=== PATIENT | male | born 2000 | race Caucasian/White ===

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

== ENCOUNTER 2019-01-13 12:04 | Emergency (ER) | payer OTHER ==
[2019-01-13 12:57] VITALS: BP 114/59
--- NOTE | 2019-01-13 15:01 | ER Document Report ---
ED Medical Screen (RME) - General Chief Complaint: Medical Clearance Stated Complaint: DETOX Time Seen by Provider: 01/13/19 13:43 Primary Care Provider: JUAN CUNNINGHAM DO [Primary Care Provider] - Follow up as needed Mode of Arrival: Ambulatory Information source: Patient Notes: Patient presents to the emergency department for medical clearance psych eval for rehab. Patient reports he has a problem with benzos. Also reports he has been in and out of [facility] his whole life but denies mental health issues. Reports he has depression. He reports he was told to come here for all the paperwork. Patient is calm alert no distress I have greeted and performed a rapid initial assessment of this patient. A comprehensive ED assessment and evaluation of the patient, analysis of test results and completion of the medical decision making process will be conducted by additional ED providers. Dictation of this chart was performed using voice recognition software; therefore, there may be some unintended grammatical errors. TRAVEL OUTSIDE OF THE [place] IN LAST 30 DAYS: No - Related Data Allergies/Adverse Reactions: amoxicillin [Amoxicillin] Allergy (Verified 04/11/17 14:22) ibuprofen [Ibuprofen] Allergy (Verified 04/11/17 14:22) Past Medical History - Social History Frequency of alcohol use: Rare Drug Abuse: None - Past Medical History Cardiac Medical History: Reports: Hx Congestive Heart Failure Renal/ Medical History: Denies: Hx Peritoneal Dialysis Psychiatric Medical History: Reports: Hx Depression Past Surgical History: Reports: Hx Orthopedic Surgery - L hand - Immunizations Immunizations up to date: Yes Hx Diphtheria, Pertussis, Tetanus Vaccination: Yes Physical Exam - Vital signs Vitals: Temp Pulse Resp BP Pulse Ox 97.9 F 56 L 16 114/59 L 98 01/13/19 12:56 01/13/19 12:56 01/13/19 12:56 01/13/19 12:56 01/13/19 12:56 Course - Vital Signs Vital signs: Temp Pulse Resp BP Pulse Ox 97.9 F 56 L 16 114/59 L 98 01/13/19 12:56 01/13/19 12:56 01/13/19 12:56 01/13/19 12:56 01/13/19 12:56 Doctor's Discharge - Discharge Referrals: JUAN CUNNINGHAM DO [Primary Care Provider] - Follow up as needed
[2019-01-13 15:34] LABS: ABSOLUTE BASOPHILS # (AUTO) 0.1 10^3/uL (0.0-0.2); ABSOLUTE EOSINOPHILS # (AUTO) 0.5 10^3/uL (0.0-0.6); ABSOLUTE LYMPHOCYTES (AUTO) 2.4 10^3/uL (0.5-4.7); ABSOLUTE MONOCYTES (AUTO) 0.7 10^3/uL (0.1-1.4); ABSOLUTE NEUT (AUTO) 3.3 10^3/uL (1.7-8.2); BASOPHILS % (AUTO) 1.4 % (0-2); EOSINOPHILS % (AUTO) 6.6 % (0-6); HEMATOCRIT 45.1 % (37.9-51.0); HEMOGLOBIN 15.1 g/dL (13.5-17.0); LYMPHOCYTES % (AUTO) 34.7 % (13-45); MEAN CORPUSCULAR HGB CONC 33.5 g/dL (32.0-36.0); MEAN CORPUSCULAR VOLUME 90 fl (80-97); MONOCYTES % (AUTO) 10.2 % (3-13); PLATELET COUNT 200 10^3/uL (150-450); RED BLOOD COUNT 5.03 10^6/uL (4.35-5.55); RED CELL DISTRIBUTION WIDTH 14.1 % (11.5-14.0); SEGMENTED NEUTROPHILS % (AUTO) 47.1 % (42-78); TOTAL CELLS COUNTED % (AUTO) 100 %; WHITE BLOOD COUNT 6.9 10^3/uL (4.0-10.5)
[2019-01-13 15:44] LABS: AMORPHOUS SEDIMENT,URINE TRACE /HPF; APPEARANCE,URINE CLOUDY; BILIRUBIN,URINE NEGATIVE (NEGATIVE); COLOR,URINE YELLOW; GLUCOSE, URINE NEGATIVE (NEGATIVE); KETONES,URINE NEGATIVE (NEGATIVE); LEUKOCYTE ESTERASE,URINE NEGATIVE (NEGATIVE); NITRITE,URINE NEGATIVE (NEGATIVE); PROTEIN,URINE NEGATIVE (NEGATIVE); URINE SPECIFIC GRAVITY 1.024; UROBILINOGEN,URINE NEGATIVE mg/dL (<2.0)
[2019-01-13 15:49] LABS: ALANINE AMINOTRANSFERASE 20 U/L (21-72); ALKALINE PHOSPHATASE 102 U/L (38-126); ANION GAP 9 (5-19); ASPARTATE AMINO TRANSFERASE 23 U/L (17-59); BILIRUBIN,DIRECT 0.2 mg/dL (0.0-0.4); BILIRUBIN,TOTAL 0.7 mg/dL (0.2-1.3); BLOOD UREA NITROGEN 12 mg/dL (7-20); CARBON DIOXIDE 28 mmol/L (22-30); CHLORIDE 104 mmol/L (98-107); GLUCOSE 94 mg/dL (75-110); POTASSIUM 5.1 mmol/L (3.6-5.0); SODIUM 140.5 mmol/L (137-145)
[2019-01-13 15:51] LABS: ACETAMINOPHEN < 10 ug/mL (10-30); ALCOHOL < 10 mg/dL (NONE DETECTED); SALICYLATE < 1.0 mg/dL (2.0-20.0)
[2019-01-13 15:58] LABS: URINE AMPHETAMINES SCREEN NEGATIVE; URINE BARBITURATES SCREEN NEGATIVE; URINE BENZODIAZEPINES SCREEN NEGATIVE; URINE COCAINE SCREEN NEGATIVE; URINE MARIJUANA (THC) SCREEN NEGATIVE; URINE METHADONE SCREEN NEGATIVE; URINE PHENCYCLIDINE SCREEN NEGATIVE
--- NOTE | 2019-01-13 17:34 | ER Document Report ---
ED Psych Disorder / Suicide - General Chief Complaint: Medical Clearance Stated Complaint: DETOX Time Seen by Provider: 01/13/19 13:43 Primary Care Provider: JUAN CUNNINGHAM DO [Primary Care Provider] - Follow up as needed Mode of Arrival: Ambulatory Notes: Patient is here because he is trying to get into alcohol detox and they require him to have a medical clearance as well as a psychiatric clearance. Patient says he has a problem abusing alcohol, but has not had any for well over a week or more. Occasionally he is taken some benzos. He is spent some time at [facility] in the past over "anger issues". Patient has also been convicted and quarter breaking and entering in violation of parole and has spent time in penitentiary as well as at present. Says he has been clean now for at least a week or 10 days and wants to get into detox so he does not end up back in penitentiary. Patient has no specific complaints or medical problems. TRAVEL OUTSIDE OF THE [place] IN LAST 30 DAYS: No - Related Data Allergies/Adverse Reactions: amoxicillin [Amoxicillin] Allergy (Verified 04/11/17 14:22) ibuprofen [Ibuprofen] Allergy (Verified 04/11/17 14:22) Past Medical History - General Information source: Patient - Social History Smoking Status: Current Every Day Smoker Frequency of alcohol use: Rare Drug Abuse: None Family History: Reviewed & Not Pertinent Patient has suicidal ideation: No Patient has homicidal ideation: No Psychiatric Medical History: Reports: Hx Depression Past Surgical History: Reports: Hx Orthopedic Surgery - L hand - Immunizations Immunizations up to date: Yes Hx Diphtheria, Pertussis, Tetanus Vaccination: Yes Review of Systems - Review of Systems Notes: REVIEW OF SYSTEMS: CONSTITUTIONAL : Denies fever. EENT: Denies eye, ear, nose or mouth or throat pain or other symptoms. CARDIOVASCULAR: Denies chest pain. RESPIRATORY: Denies cough, chest congestion, or shortness of breath. GASTROINTESTINAL: Denies abdominal pain or nausea, vomiting, or diarrhea. GENITOURINARY: Denies difficulty or painful urinating, urinary frequency, blood in urine. MUSCULOSKELETAL: Denies back or neck pain. Denies joint pain or swelling. Says he is been told he has a cyst on the dorsal knuckle between the distal metacarpal and the proximal phalanx of that middle finger joint. SKIN: Denies rash or skin lesions. NEUROLOGICAL: Denies LOC or altered mental status. Denies headache. Denies sensory loss or motor deficits. ALL OTHER SYSTEMS REVIEWED AND NEGATIVE. Physical Exam - Vital signs Vitals: Temp Pulse Resp BP Pulse Ox 97.9 F 56 L 16 114/59 L 98 01/13/19 12:56 01/13/19 12:56 01/13/19 12:56 01/13/19 12:56 01/13/19 12:56 Interpretation: Normal Notes: PHYSICAL EXAMINATION: GENERAL: Well-appearing, in no acute distress. Vital signs are all normal. Patient is calm and pleasant. HEAD: Atraumatic, normocephalic. EYES: Pupils equal round and reactive to light, extraocular movements intact. ENT: oropharynx clear without exudates. Moist mucous membranes. NECK: Normal range of motion, supple. LUNGS: Breath sounds clear and equal bilaterally. HEART: Regular rate and rhythm without murmurs. ABDOMEN: Soft, nontender. No guarding or rebound. No masses. BACK: No tenderness throughout entire back. EXTREMITIES: Normal range of motion without pain. I do not see any evidence of a cyst mentioned previously on the dorsum of the hand at the knuckle between the metacarpal and the proximal phalanx of the middle finger. Full range of motion without any limitations. NEUROLOGICAL: Normal speech, normal gait. Normal sensory, motor, and reflex exams. Awake, alert, and oriented x3. Cranial nerves normal. PSYCH: Normal mood, normal affect. SKIN: Warm, dry, no rashes. Course - Re-evaluation Re-evalutation: 01/13/19 17:36 All of the patient's labs are essentially normal. - Vital Signs Vital signs: Temp Pulse Resp BP Pulse Ox 97.9 F 56 L 16 114/59 L 98 01/13/19 12:56 01/13/19 12:56 01/13/19 12:56 01/13/19 12:56 01/13/19 12:56 - Laboratory Result Diagrams: 01/13/19 15:16 01/13/19 15:16 Laboratory results interpreted by me: 01/13/19 01/13/19 15:16 15:16 RDW 14.1 H Eosinophils % 6.6 H Potassium 5.1 H ALT 20 L Salicylates < 1.0 L Acetaminophen < 10 L Discharge - Discharge Clinical Impression: Medical clearance, Normal exam Condition: Stable Disposition: HOME, SELF-CARE Additional Instructions: NORMAL EXAM AND WORKUP: At this time, your examination and workup show no significant medical abnormality. No significant abnormal physical findings were noted. All laboratory, EKG, and imaging (x-ray, CT scans, ultrasound) studies that were ordered show no significant abnormality. Although your examination and all studies that were ordered showed no significant abnormal finding, there are no examinations and no studies that are 100% accurate. There is always the possibility that some abnormality could exist and not be detected with physical examination or within the limits and capabilities of laboratory and other studies. You should return or follow up as you were instructed on your visit today for further evaluation if your symptoms do not resolve. FOLLOW-UP CARE: If you have been referred to a physician for follow-up care, call the physicians office for an appointment as you were instructed or within the next two days. If you experience worsening or a significant change in your symptoms, notify the physician immediately or return to the Emergency Department at any time for re-evaluation.
--- NOTE | 2019-01-14 19:07 | EKG REPORT ---
SEVERITY:- NORMAL ECG - SINUS RHYTHM : Confirmed by: Devin Olsen MD 14-Jan-2019 19:07:07
== END 2019-01-13 17:45 | disposition home or self-care (01) ==
LOC: ER 12:04
DX: Z71.1 Person with feared health complaint in whom no diagnosis is made (principal); F10.10 Alcohol abuse, uncomplicated; F17.200 Nicotine dependence, unspecified, uncomplicated
CPT/HCPCS: 36415; 80053; 80307; 81001; 85025; 93005; 93010; 99283

== ENCOUNTER 2019-01-14 11:53 | Emergency (ER) | payer OTHER ==
[2019-01-14 12:07] VITALS: BP 113/64
--- NOTE | 2019-01-14 12:48 | ER Document Report ---
Addendum entered and electronically signed by PRINCESS MILLAN LPC 01/14/19 13:25: Discharge - Discharge Clinical Impression: History of substance use, Normal psychiatric assessment Condition: Stable Disposition: HOME, SELF-CARE Additional Instructions: You have been evaluated by both medical and psychiatric providers while in the emergency department. You have been cleared from both acute medical and psychiatric services. This visit was for general psychiatric consultation for clearance to [facility], [facility] term recovery program. You denied suicidal and homicidal ideation (SI/HI), made no comments or gestures regarding SI/HI, and no observed psychosis as evidenced by fair eye contact/staying on topic/answering questions appropriately when addressed/being engaged in evaluation. Mental Status Exam is unremarkable with euthymic mood and congruent affect, linear and organized thought processes, conversational speech within normal limits for rate/tone/prosody, intellectual abilities estimated to be average, attention and concentration were good and insight/judgment/impulse control fair as evidenced by completing requirements for [facility], a [employer] recovery program. You denied drug and alcohol use, stated you have been sober 11 4 days today and Urine Drug Screen yesterday (01/13/19) was negative for all substances tested for. You have been seen in the [facility] Emergency Department in the past for psychiatric/behavioral health reasons (04/11/17, 02/16/17) under Involuntary Commitment where polysubstance use and suicidal ideations (then documented as chronic and passive without plan), each time being rescinded and discharged. 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 You denied current outpatient services. You admitted to current Probation (been on for 2 years, it has been extended another 2 years) and trying to get back on track with your life and future. Follow-Up Plan: You stated you would be faxing paperwork to [facility] as you have already been accepted and just need to submit all required paperwork and information. You are recommended to move forward with such [employer] recovery. Referrals: JUAN CUNNINGHAM, [NO LOCAL MD] - Follow up as needed [facility] [Outside] - Follow up as needed Original Note: ED Medical Screen (RME) - General Mode of Arrival: Ambulatory Information source: Patient TRAVEL OUTSIDE OF THE [place] IN LAST 30 DAYS: No - General Chief Complaint: Psych Problem Stated Complaint: MEDICAL CLEARANCE/PSYCH Time Seen by Provider: 01/14/19 12:41 Primary Care Provider: [facility] [Outside] - Follow up as needed JUAN CUNNINGHAM DO [NO LOCAL MD] - Follow up as needed Notes: Patient presents to the emergency department for psych clearance to go to rehab. He was evaluated here yesterday and received medical clearance to go to rehab but chose a send him back here to obtain psych clearance. He reports history of alcohol abuse. He has also used benzos in the past. Reports no drug abuse recently. No other complaints. Princess from [facility] is aware. I have greeted and performed a rapid initial assessment of this patient. A comprehensive ED assessment and evaluation of the patient, analysis of test results and completion of the medical decision making process will be conducted by additional ED providers. Dictation of this chart was performed using voice recognition software; therefore, there may be some unintended grammatical errors. (SEJAL ANGELA) - Related Data Allergies/Adverse Reactions: amoxicillin [Amoxicillin] Allergy (Verified 01/14/19 11:54) ibuprofen [Ibuprofen] Allergy (Verified 01/14/19 11:54) Past Medical History - Past Medical History Cardiac Medical History: Reports: Hx Congestive Heart Failure Renal/ Medical History: Denies: Hx Peritoneal Dialysis Psychiatric Medical History: Reports: Hx Depression Past Surgical History: Reports: Hx Orthopedic Surgery - L hand - Immunizations Immunizations up to date: Yes Hx Diphtheria, Pertussis, Tetanus Vaccination: Yes - Vital signs Vitals: Temp Pulse Resp BP Pulse Ox 97.8 F 65 21 H 113/64 98 01/14/19 12:06 01/14/19 12:06 01/14/19 12:06 01/14/19 12:06 01/14/19 12:06 - Vital Signs Vital signs: Temp Pulse Resp BP Pulse Ox 97.8 F 65 21 H 113/64 98 01/14/19 12:06 01/14/19 12:06 01/14/19 12:06 01/14/19 12:06 01/14/19 12:06 Doctor's Discharge - Discharge Clinical Impression: History of substance use, Normal psychiatric assessment Condition: Stable Disposition: HOME, SELF-CARE Additional Instructions: You have been evaluated by both medical and psychiatric providers while in the emergency department. You have been cleared from both acute medical and psychiatric services. This visit was for general psychiatric consultation for clearance to [facility], along term recovery program. You denied suicidal and homicidal ideation (SI/HI), made no comments or gestures regarding SI/HI, and no observed psychosis as evidenced by fair eye contact/staying on topic/answering questions appropriately when addressed/being engaged in evaluation. Mental Status Exam is unremarkable with euthymic mood and congruent affect, linear and organized thought processes, conversational speech within normal limits for rate/tone/prosody, intellectual abilities estimated to be average, attention and concentration were good and insight/judgment/impulse control fair as evidenced by completing requirements for [facility], a group home recovery program. You denied drug and alcohol use, stated you have been sober 114 days today and Urine Drug Screen yesterday (01/13/19) was negative for all substances tested for. You have been seen in the [facility] Emergency Department in the past for psychiatric/behavioral health reasons (04/11/17, 02/16/17) under Involuntary Commitment where polysubstance use and suicidal ideations (then documented as chronic and passive without plan), each time being rescinded and discharged. 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 You denied current outpatient services. You admitted to current Probation (been on for 2 years, it has been extended another 2 years) and trying to get back on track with your life and future. Follow-Up Plan: You stated you would be faxing paperwork to [facility] as you have already been accepted and just need to submit all required paperwork and information. You are recommended to move forward with such group home recovery. Referrals: [facility] [Outside] - Follow up as needed JUAN CUNNINGHAM, [NO LOCAL MD] - Follow up as needed
--- NOTE | 2019-01-14 13:26 | PSYCHOLOGICAL NOTE ---
Psych Note - Psych Note Date seen by psych provider: 01/14/19 Time seen by psych provider: 12:13 - Chart review at 1213. Evaluation from 1301- 1307. 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 Patient denied suicidal and homicidal ideation (SI/HI), made no comments or gest ures regarding SI/HI, and no observed psychosis as evidenced by fair eye contact/staying on topic/answering questions appropriately when addressed/being engaged in evaluation. Mental Status Exam is unremarkable with euthymic mood and congruent affect, linear and organized thought processes, conversational speech within normal limits for rate/tone/prosody, intellectual abilities estimated to be average, attention and concentration were good and insight/judgment/impulse control fair as evidenced by completing requirements for [facility], a long term care phlebotomist recovery program. He denied drug and alcohol use, stated he has been sober 114 days today and Urine Drug Screen yesterday (01/13/19) was negative for all substances tested for. Patient has been seen in the [facility] Emergency Department in the past for psychiatric/behavioral health reasons (04/11/17, 02/16/17) under Involuntary Commitment where polysubstance use and suicidal ideations (then documented as chronic and passive without plan), each time being rescinded and discharged. 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 Patient denied current outpatient services. He admitted to current Probation (been on for 2 years, it has been extended another 2 years) and trying to get back on track with his life and future. Impression/Plan: Patient is cleared from acute psychiatric services. He denied SI/HI, no observed psychosis and requested general psychiatric consultation fro clearance to [facility]. He stated he would be faxing paperwork to [facility] as he has already been accepted and just need to submit all required paperwork and information. He was recommended and encouraged to move forward with such long term care phlebotomist recovery. Consulted with Dr. Cleary regarding the management and care of patient. ED Physician in agreement with recommendations.
--- NOTE | 2019-01-14 18:14 | ER Document Report ---
ED Medical Screen (RME) - General Chief Complaint: Psych Problem Stated Complaint: MEDICAL CLEARANCE/PSYCH Time Seen by Provider: 01/14/19 12:41 Primary Care Provider: [facility] [Outside] - Follow up as needed JUAN CUNNINGHAM DO [NO LOCAL MD] - Follow up as needed Mode of Arrival: Ambulatory Notes: This patient was seen here last night requesting medical and psychiatric clearance so that he could be admitted to detox. He came to the emergency department after the mental health providers had finished their day and gone home and they were not available to evaluate the patient for his mental status. I went ahead and did a history and physical exam on the patient and provided him with a documentation that he physically seem to be normal. I advised him that he could come back tomorrow (today) and mental health personnel could assess him and provide him with that coverage. I saw the patient briefly and said hello to him, but no exam was performed today. He was evaluated by the mental health personnel and was discharged home. Silas Mata MD TRAVEL OUTSIDE OF THE [place] IN LAST 30 DAYS: No - Related Data Allergies/Adverse Reactions: amoxicillin [Amoxicillin] Allergy (Verified 01/14/19 11:54) ibuprofen [Ibuprofen] Allergy (Verified 01/14/19 11:54) Past Medical History - Social History Chew tobacco use (# tins/day): No Frequency of alcohol use: Rare Drug Abuse: Marijuana, Prescription drugs - Past Medical History Cardiac Medical History: Reports: Hx Congestive Heart Failure Renal/ Medical History: Denies: Hx Peritoneal Dialysis Psychiatric Medical History: Reports: Hx Depression Past Surgical History: Reports: Hx Orthopedic Surgery - L hand - Immunizations Immunizations up to date: Yes Hx Diphtheria, Pertussis, Tetanus Vaccination: Yes Physical Exam - Vital signs Vitals: Temp Pulse Resp BP Pulse Ox 97.8 F 65 21 H 113/64 98 01/14/19 12:06 01/14/19 12:06 01/14/19 12:06 01/14/19 12:06 01/14/19 12:06 Course - Vital Signs Vital signs: Temp Pulse Resp BP Pulse Ox 97.8 F 65 21 H 113/64 98 01/14/19 12:06 01/14/19 12:06 01/14/19 12:06 01/14/19 12:06 01/14/19 12:06 Doctor's Discharge - Discharge Clinical Impression: History of substance use, Normal psychiatric assessment Condition: Stable Disposition: HOME, SELF-CARE Additional Instructions: You have been evaluated by both medical and psychiatric providers while in the emergency department. You have been cleared from both acute medical and psychiatric services. This visit was for general psychiatric consultation for clearance to [facility], along term recovery program. You denied suicidal and homicidal ideation (SI/HI), made no comments or gestures regarding SI/HI, and no observed psychosis as evidenced by fair eye contact/staying on topic/answering questions appropriately when addressed/being engaged in evaluation. Mental Status Exam is unremarkable with euthymic mood and congruent affect, linear and organized thought processes, conversational speech within normal limits for rate/tone/prosody, intellectual abilities estimated to be average, attention and concentration were good and insight/judgment/impulse control fair as evidenced by completing requirements for [facility], a penitentiary recovery program. You denied drug and alcohol use, stated you have been sober 114 days today and Urine Drug Screen yesterday (01/13/19) was negative for all substances tested for. You have been seen in the [facility] Emergency Department in the past for psychiatric/behavioral health reasons (04/11/17, 02/16/17) under Involuntary Commitment where polysubstance use and suicidal ideations (then documented as chronic and passive without plan), each time being rescinded and discharged. At those previous visits you had been going to outpatient mental health services at 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 You denied current outpatient services. You admitted to current Probation (been on for 2 years, it has been extended another 2 years) and trying to get back on track with your life and future. Follow-Up Plan: You stated you would be faxing paperwork to [facility] as you have already been accepted and just need to submit all required paperwork and information. 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 Referrals: [facility] [Outside] - Follow up as needed JUAN CUNNINGHAM, [NO LOCAL MD] - Follow up as needed
== END 2019-01-14 13:35 | disposition home or self-care (01) ==
LOC: ER 11:53
DX: Z00.8 Encounter for other general examination (principal); F12.10 Cannabis abuse, uncomplicated; Z88.0 Allergy status to penicillin; Z88.8 Allergy status to other drugs, medicaments and biological substances
CPT/HCPCS: 99284